=== PATIENT | male | born 1945 | race Caucasian/White ===

== ENCOUNTER 2025-04-22 13:41 | Outpatient (CLI) | payer OTHER ==
[2025-04-22 14:45] LABS: Estimated GFR - POC 69.0
== END 2025-04-22 13:42 | disposition home or self-care (01) ==
LOC: CSHCT 13:41
DX: R63.4 Abnormal weight loss (principal); R91.8 Other nonspecific abnormal finding of lung field; I25.10 Atherosclerotic heart disease of native coronary artery without angina pectoris; I25.84 Coronary atherosclerosis due to calcified coronary lesion; K57.30 Diverticulosis of large intestine without perforation or abscess without bleeding; E27.8 Other specified disorders of adrenal gland; Z98.890 Other specified postprocedural states; N20.0 Calculus of kidney
CPT/HCPCS: 71250; 74177; 82565